=== PATIENT | female | born 1945 | race Caucasian/White ===

== ENCOUNTER 2018-09-20 11:31 | Emergency (ER) | payer OTHER ==
[~2018-09-20] VITALS: Ht 170.2 cm; Wt 40.8 kg
[~2018-09-20 11:31] MED LIST: BACTRIM1 TAB PO; COL100UDC NG; LAC PO; NORCO1 TA2 PO
[2018-09-20 11:55] VITALS: Ht 170.2 cm; Wt 40.8 kg
[2018-09-20 12:06] LABS: RED CELL DISTRIBUTION WIDTH 14.2 % (11.5-14.5)
[2018-09-20 12:10] LABS: PLATELET COUNT 104 x10^3mcL (130-400)
[2018-09-20 12:32] LABS: CALCIUM 8.7 mg/dL (8.5-10.1); CHLORIDE SERUM 101 mmol/L (98-107); CREATININE SERUM 1.7 mg/dL (0.6-1.0); GLUCOSE SERUM 106 mg/dL (74-106); POTASSIUM SERUM 3.6 mmol/L (3.5-5.1); SODIUM SERUM 134 mmol/L (136-145)
[2018-09-20 12:36] LABS: ALKALINE PHOSPHATASE 99 U/L (46-116); ALT/SGPT 13 U/L (14-59); AST/SGOT 66 U/L (15-37); BILIRUBIN TOTAL 2.03 mg/dL (0.20-1.00); CHOLESTEROL 173 mg/dL (<200); PHOSPHOROUS 2.9 mg/dL (2.5-4.9)
[2018-09-20 12:54] LABS: ALBUMIN 2.5 g/dL (3.4-5.0); HDL CHOLESTEROL 18 mg/dL (40-60)
[2018-09-20 12:59] LABS: microscopic required? NO
[2018-09-20 14:25] LABS: urine erythrocyte NEGATIVE (NEGATIVE)
[2018-09-20 18:05] VITALS: BP 124/79
== END 2018-09-20 18:05 | disposition home or self-care (01) ==
LOC: ED 11:31
PROVIDERS: Emergency Medicine
DX: R53.1 Weakness (principal); E83.42 Hypomagnesemia; E86.0 Dehydration; F17.210 Nicotine dependence, cigarettes, uncomplicated; K70.31 Alcoholic cirrhosis of liver with ascites; I10 Essential (primary) hypertension; F10.10 Alcohol abuse, uncomplicated; Z71.6 Tobacco abuse counseling; Z88.8 Allergy status to other drugs, medicaments and biological substances
CPT/HCPCS: 99406; J3411; J3475; J3490; J7030; Q0092

== ENCOUNTER 2018-10-01 20:52 | Inpatient (IN) | payer OTHER ==
[~2018-10-01] VITALS: Ht 167.6 cm; Wt 56.7 kg
[2018-10-01 21:43] VITALS: Ht 167.6 cm; Wt 56.7 kg
[2018-10-01 22:36] LABS: BASOPHIL % 0 % (0-2); PLATELET COUNT 71 x10^3mcL (130-400); RED CELL DISTRIBUTION WIDTH 17.6 % (11.5-14.5)
[2018-10-01 22:47] LABS: CALCIUM 9.3 mg/dL (8.5-10.1); CHLORIDE SERUM 107 mmol/L (98-107); CREATININE SERUM 1.6 mg/dL (0.6-1.0); GLUCOSE SERUM 146 mg/dL (74-106); POTASSIUM SERUM 3.6 mmol/L (3.5-5.1); SODIUM SERUM 133 mmol/L (136-145)
[2018-10-01 22:52] LABS: ALKALINE PHOSPHATASE 72 U/L (46-116); ALT/SGPT 29 U/L (14-59); AST/SGOT 49 U/L (15-37); BILIRUBIN TOTAL 1.59 mg/dL (0.20-1.00)
[2018-10-01 22:53] LABS: ALBUMIN 2.4 g/dL (3.4-5.0); TOTAL PROTEIN, SERUM 5.2 g/dL (6.4-8.2)
[2018-10-02 00:18] LABS: microscopic required? YES; urine erythrocyte 2+ (NEGATIVE)
[2018-10-02] MEDS ORDERED: CELEBREX200 MG (01:14)
[2018-10-02] MEDS ORDERED: LOSARTAN POTAS100 M1 (01:15)
[2018-10-02] MEDS ORDERED: ALDACTONE25 MG (01:16)
[2018-10-02] MEDS ORDERED: MID5 (01:16)
[2018-10-02] MEDS ORDERED: PANTOPRAZOLE SO40 M1 (01:16)
[2018-10-02 05:16] VITALS: BP 90/50
[2018-10-02 07:30] LABS: ALKALINE PHOSPHATASE 62 U/L (46-116); ALT/SGPT 27 U/L (14-59); AST/SGOT 37 U/L (15-37); BILIRUBIN TOTAL 1.58 mg/dL (0.20-1.00); CALCIUM 9.3 mg/dL (8.5-10.1); CARBON DIOXIDE 15.8 mmol/L (21-32); CHLORIDE SERUM 108 mmol/L (98-107); CREATININE SERUM 1.4 mg/dL (0.6-1.0); GLUCOSE SERUM 98 mg/dL (74-106); POTASSIUM SERUM 3.7 mmol/L (3.5-5.1); SODIUM SERUM 135 mmol/L (136-145)
[2018-10-02 07:34] LABS: ALBUMIN 2.8 g/dL (3.4-5.0); TOTAL PROTEIN, SERUM 5.1 g/dL (6.4-8.2)
[2018-10-02 08:26] LABS: BASOPHIL % 0.1 % (0-2)
[2018-10-02 08:27] LABS: PLATELET COUNT 50 x10^3mcL (130-400); RED CELL DISTRIBUTION WIDTH 17.8 % (11.5-14.5)
[2018-10-02 09:52] VITALS: BP 82/46
[2018-10-02 14:00] VITALS: BP 84/44
[2018-10-02 17:37] VITALS: BP 91/44
[2018-10-02 20:58] VITALS: BP 94/40
[2018-10-03] VITALS (13 sets, daily range): BP systolic 72–95; BP diastolic 37–54
[2018-10-03 06:27] LABS: ALKALINE PHOSPHATASE 72 U/L (46-116); ALT/SGPT 27 U/L (14-59); AST/SGOT 45 U/L (15-37); BILIRUBIN DIRECT 0.46 mg/dL (0.0-0.2); BILIRUBIN TOTAL 0.91 mg/dL (0.20-1.00); CALCIUM 8.5 mg/dL (8.5-10.1); CARBON DIOXIDE 15.9 mmol/L (21-32); CHLORIDE SERUM 109 mmol/L (98-107); CREATININE SERUM 1.6 mg/dL (0.6-1.0); GLUCOSE SERUM 113 mg/dL (74-106); POTASSIUM SERUM 3.7 mmol/L (3.5-5.1); SODIUM SERUM 136 mmol/L (136-145)
[2018-10-03 06:34] LABS: ALBUMIN 2.4 g/dL (3.4-5.0); TOTAL PROTEIN, SERUM 4.9 g/dL (6.4-8.2)
[2018-10-03 07:17] LABS: BASOPHIL % 0.4 % (0-2); PLATELET COUNT 53 x10^3mcL (130-400); RED CELL DISTRIBUTION WIDTH 17.7 % (11.5-14.5)
[2018-10-04 05:43] VITALS: BP 90/44
[2018-10-04 08:38] VITALS: BP 90/47
[2018-10-04 12:01] VITALS: BP 88/46
[2018-10-04 16:28] VITALS: BP 90/49
[2018-10-04 18:26] VITALS: BP 91/56
[2018-10-04 20:57] VITALS: BP 97/45
[2018-10-05 05:58] VITALS: BP 114/81
[2018-10-05 08:19] VITALS: BP 113/55
[2018-10-05 11:16] VITALS: BP 126/45
[2018-10-05 12:43] VITALS: BP 114/46
[2018-10-05 17:58] VITALS: BP 101/43
[2018-10-05 21:18] VITALS: BP 113/50
[2018-10-06 05:52] VITALS: BP 98/44
[2018-10-06 09:25] VITALS: BP 100/41
[2018-10-06 12:00] VITALS: BP 102/43
[2018-10-06 13:08] VITALS: BP 100/41
[2018-10-06 17:00] VITALS: BP 112/46
== END 2018-10-06 20:50 | disposition short-term general hospital (02) | DRG 380 ==
LOC: ED 20:52 → DU 10-02 00:28
PROVIDERS: Emergency Medicine; Internal Medicine; ADMIT Internal Medicine Pulmonary Disease
PROC: 30233K1 Transfusion of Nonautologous Frozen Plasma into Peripheral Vein, Percutaneous Approach (ICD-10-PCS; principal; 2018-10-02 11:00)
PROC: 0W3P8ZZ Control Bleeding in Gastrointestinal Tract, Via Natural or Artificial Opening Endoscopic (ICD-10-PCS; 2018-10-02 11:00)
PROC: 0W9G3ZZ Drainage of Peritoneal Cavity, Percutaneous Approach (ICD-10-PCS; 2018-10-03)
DX: K22.11 Ulcer of esophagus with bleeding (principal); G93.41 Metabolic encephalopathy; D68.9 Coagulation defect, unspecified; K76.6 Portal hypertension; K70.31 Alcoholic cirrhosis of liver with ascites; K31.89 Other diseases of stomach and duodenum; K29.80 Duodenitis without bleeding; D50.0 Iron deficiency anemia secondary to blood loss (chronic); I12.9 Hypertensive chronic kidney disease with stage 1 through stage 4 chronic kidney disease, or unspecified chronic kidney disease; N18.3 Chronic kidney disease, stage 3 (moderate); F10.10 Alcohol abuse, uncomplicated
CPT/HCPCS: 43235; 49083; C1729; C9113; J0696; J1200; J1610; J2001; J2250; J2310; J3010; J3430; J3490; J7030; J7040; J7050; P9045; P9047; P9059; Q0092